=== PATIENT | male | born 1985 | race African-American/Black ===

== ENCOUNTER 2024-11-22 17:46 | Emergency (ER) | payer OTHER, SELFPAY ==
[2024-11-22] MEDS ORDERED: Boostrix 0.5 ML (Tdap) VIAL (>/=7 yrs of age) ONE (18:22)
== END 2024-11-22 18:40 | disposition home or self-care (01) ==
LOC: NAV ERS 17:46
DX: S61.211A Laceration without foreign body of left index finger without damage to nail, initial encounter (principal); Z23 Encounter for immunization; W26.0XXA Contact with knife, initial encounter
CPT/HCPCS: 12001; 90471; 90715